=== PATIENT | male | born 1970 | race Caucasian/White ===

== ENCOUNTER → 2020-07-11 10:33 | Outpatient (BNVA) | payer OTHER, SELFPAY | PROVIDERS: Family Provider Family Medicine; Referring Provider Family Medicine; Visit Provider Orthopaedic Surgery | DX: M25.562 Pain in left knee (principal); M17.12 Unilateral primary osteoarthritis, left knee | CPT/HCPCS: 73560; 73565 ==

== ENCOUNTER → 2022-03-18 11:04 | Outpatient (BNVA) | payer OTHER, SELFPAY | PROVIDERS: Family Provider Family Medicine; PCP Family Medicine; Visit Provider Family Medicine | DX: Z87.39 Personal history of other diseases of the musculoskeletal system and connective tissue (principal); I10 Essential (primary) hypertension; M10.9 Gout, unspecified; M17.9 Osteoarthritis of knee, unspecified | CPT/HCPCS: 80053; 80061; 84550 ==

== ENCOUNTER 2022-12-03 09:19 | Emergency (ER) | payer OTHER, SELFPAY ==
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
[2022-12-03 09:26] VITALS: BP 104/73; PULSE 88; RESP 18; TEMP 36.5; O2SAT 92
[2022-12-03 09:49] VITALS: RESP 14
[2022-12-03] MEDS: morphine 4 mg/mL SDV 1 mL IVP (09:49)
[2022-12-03] MEDS: ceFAZolin 2,000 MG in sodium chloride 0.9% (plus) 50 ML 100 MG IV (09:51)
[2022-12-03] MEDS: ondansetron 2 mg/ML SDV 2 mL 4 MG IVP (09:53)
[2022-12-03] MEDS: tetanus-dipt-pertussis 0.5 mL SDV IM (09:55)
[2022-12-03 09:57] VITALS: BP 145/89; PULSE 100; RESP 15; O2SAT 96
[2022-12-03] MEDS: neomycin-poly-bacitracin oint 28 gm 1 APPLIC TOPICAL (10:41)
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
[2022-12-03 11:49] VITALS: PULSE 71; RESP 15; O2SAT 96
[2022-12-03 13:18] VITALS: RESP 16; O2SAT 98
== END 2022-12-03 13:23 | disposition home or self-care (01) ==
PROVIDERS: Emergency Provider Family Medicine; PCP Family Medicine
DX: S61.432A Puncture wound without foreign body of left hand, initial encounter (principal); W32.0XXA Accidental handgun discharge, initial encounter; Z79.82 Long term (current) use of aspirin; I10 Essential (primary) hypertension; Z23 Encounter for immunization
CPT/HCPCS: 29125; 73130; 90715; 96365; 96367; 96375; 99284; J0690; J2270; J2405